=== PATIENT | female | born 2000 | race Two or more races ===

== ENCOUNTER 2018-12-03 06:41 | Emergency (ER) | payer OTHER ==
[~2018-12-03] VITALS: Ht 167.6 cm; Wt 66.9 kg
[2018-12-03 06:45] VITALS: Ht 167.6 cm; Wt 66.9 kg
[2018-12-03 07:32] LABS: BASOPHIL % 1.1 % (0-2); PLATELET COUNT 230 x10^3mcL (130-400); RED CELL DISTRIBUTION WIDTH 12.6 % (11.5-14.5)
[2018-12-03 07:55] LABS: CALCIUM 9.5 mg/dL (8.5-10.1); CARBON DIOXIDE 20.6 mmol/L (21-32); CHLORIDE SERUM 109 mmol/L (98-107); CREATININE SERUM 0.8 mg/dL (0.6-1.0); GFR1 > 60 mL/min; GLUCOSE SERUM 100 mg/dL (74-106); POTASSIUM SERUM 3.8 mmol/L (3.5-5.1); SODIUM SERUM 144 mmol/L (136-145)
[2018-12-03 07:59] LABS: ALBUMIN 3.6 g/dL (3.4-5.0); ALKALINE PHOSPHATASE 58 U/L (46-116); ALT/SGPT 20 U/L (14-59); AST/SGOT 16 U/L (15-37); TOTAL PROTEIN, SERUM 6.9 g/dL (6.4-8.2)
[2018-12-03 09:28] VITALS: BP 100/70
== END 2018-12-03 09:28 | disposition home or self-care (01) ==
LOC: ED 06:41
PROVIDERS: Emergency Medicine
DX: N94.6 Dysmenorrhea, unspecified (principal)
CPT/HCPCS: J1885; J7030; Q0092